=== PATIENT | female | born 1940 | race Caucasian/White ===

== ENCOUNTER 2017-10-17 15:27 | Inpatient (IN) | payer MEDICARE ==
[~2017-10-17] VITALS: Ht 165.1 cm; Wt 66.0 kg
[2017-10-17] MEDS ORDERED: IV NS 0.9% 1,000 ML BAG IV ONE ×2 (15:30→17:30)
--- NOTE | 2017-10-17 15:35 | NUR ---
[id number] FROM HOME: FEVER, ALOC, INCONTINENT. A/OX 2. BREATHING EVEN AND UNLABORED. NO SOB. VITALS STABLE. SKIN WARM TO TOUCH. IV INTACT ON LEFT HAND, 20 G.
[2017-10-17 15:55] LABS: BASOPHILS # (AUTO) 0.1 /CMM (0.0-0.2); BASOPHILS % (AUTO) 0.7 % (0.0-2.0); EOSINOPHILS % (AUTO) 0.3 % (0.0-6.0); HEMATOCRIT 40 % (33-45); HEMOGLOBIN 13.9 g/dL (11.5-14.8); LYMPHOCYTES # (AUTO) 1.3 /CMM (0.8-4.8); LYMPHOCYTES % (AUTO) 11.5 % (20.0-44.0); MEAN CORPUSCULAR HEMOGLOBIN 31 PG (26.0-33.0); MEAN CORPUSCULAR HGB CONC 35 g/dl (31.0-36.0); MEAN CORPUSCULAR VOLUME 90 fL (82-100); MONOCYTES % (AUTO) 8.8 % (2.0-12.0); NEUTROPHILS # (AUTO) 9.1 /CMM (1.8-8.9); NEUTROPHILS % (AUTO) 78.7 % (43.0-81.0); PLATELET COUNT (AUTO) 201 /CMM (150-450); RDW COEFFICIENT OF VARIATION 12.8 (11.5-15.0); RED BLOOD CELL COUNT(AUTO) 4.43 MIL/uL (4.0-5.2); WHITE BLOOD COUNT (AUTO) 11.5 K/uL (4.3-11.0)
--- NOTE | 2017-10-17 15:59 | NUR ---
URINE SAMPLE COLLECTED SENT TO LAB
--- NOTE | 2017-10-17 15:59 | NUR ---
PIECE GOODS PACKER AT BEDSIDE
--- NOTE | 2017-10-17 16:02 | NUR ---
INFLUENZA SWAB OBTAINED AND SENT TO LAB.
--- NOTE | 2017-10-17 16:03 | NUR ---
PATIENT TAKEN TO CT VIA STRETCHER.
[2017-10-17 16:04] LABS: CALCIUM, SERUM 8.9 mg/dL (8.5-10.1); CARBON DIOXIDE 29 mmol/L (21-32); CHLORIDE 100 mmol/L (98-107); CREATININE 0.8 mg/dL (0.6-1.3); GLUCOSE 161 mg/dL (74-106); POTASSIUM 4.6 mmol/L (3.5-5.1); SODIUM SERUM 136 mmol/L (136-145); UREA NITROGEN, BLOOD 12 mg/dL (7-18)
[2017-10-17 16:07] LABS: INR 1.01 (0.87-1.13); PROTHROMBIN TIME 10.5 SECS (9.5-12.7)
[2017-10-17 16:09] LABS: ALANINE AMINOTRANSFERASE 26 U/L (12-78); ALBUMIN 3.4 g/dL (3.4-5.0); ALKALINE PHOSPHATASE 107 U/L (46-116); ASPARTATE AMINOTRANSFERASE 30 U/L (15-37); BILIRUBIN,DIRECT 0.1 mg/dL (0.0-0.2); BILIRUBIN,TOTAL 0.8 mg/dL (0.2-1.0); TOTAL PROTEIN, SERUM 7.7 g/dL (6.4-8.2)
[2017-10-17 16:10] LABS: APPEARANCE,URINE Clear (CLEAR); BILIRUBIN,URINE Negative (NEGATIVE); BLOOD, URINE Negative Ery/uL (NEGATIVE); COLOR,URINE Yellow (YELLOW); KETONES,URINE Trace (NEGATIVE); LEUKOCYTE ESTERASE ,URINE Negative (NEGATIVE); NITRITE, URINE Negative (NEGATIVE); PH,URINE 6.5 (5.0-8.0); PROTEIN,URINE Negative (NEGATIVE); UGLUCOSE Negative (NEGATIVE); UROBILINOGEN,URINE 0.2 EU/dL (0.2)
[2017-10-17 16:12] LABS: TROPONIN I < 0.017 ng/mL (0.00-0.056)
[2017-10-17 16:32] LABS: BACTERIA,URINE None seen /HPF (None Seen); SQUAMOUS EPITHELIAL CELL,UR Few /HPF (None Seen); WBC,URINE 0-3 /HPF (0-3)
[2017-10-17] MEDS ORDERED: methylPREDNISolone SOD SUCC 125 MG/2ML VIAL IV ONE (17:00)
[2017-10-17] MEDS ORDERED: IPRATROPIUM NEB FS 0.5 MG/2.5 ML AMPUL.NEB NEB ONE (17:00)
[2017-10-17] MEDS ORDERED: ALBUTEROL FS 2.5 MG/3 ML VIAL.NEB NEB ONE (17:00)
[2017-10-17] MEDS ORDERED: CEFTRIAXONE 1GM BAG (ER ONLY) 1 GM/50 ML PIGGYBACK IV ONE (17:00)
[2017-10-17] MEDS ORDERED: CEFTRIAXONE 1GM BAG (ER ONLY) 50 ML IV ONE (17:08)
[2017-10-17] MEDS ORDERED: methylPREDNISolone SOD SUCC 125 MG/2ML VIAL ONE (17:08)
--- NOTE | 2017-10-17 17:08 | NUR ---
CALLED NURSING SUP. FOR TELE BED
--- NOTE | 2017-10-17 17:08 | NUR ---
DR.RUTHERFORD LASHELL STATISTICIAN THEORETICAL
[2017-10-17] MEDS ORDERED: IPRATROPIUM NEB FS 0.5 MG/2.5 ML AMPUL.NEB ONE (17:09)
[2017-10-17] MEDS ORDERED: ALBUTEROL FS 2.5 MG/3 ML VIAL.NEB ONE (17:09)
[2017-10-17] MEDS ORDERED: IV NS 0.9% 1,000 ML IV PRN (17:13)
[2017-10-17] MEDS ORDERED: BENA10TA2 PO (17:24)
[2017-10-17] MEDS ORDERED: HYDR12.5 PO (17:24)
[2017-10-17] MEDS ORDERED: ONDANSETRON HCL/PF 4 MG/2 ML VIAL IVP PRN (17:30)
[2017-10-17] MEDS ORDERED: Z GUARD REMEDY 2 OZ OINT TP PRN (17:30)
[2017-10-17] MEDS ORDERED: MAG HYDROX/AL HYDROX/SIMETH 30 ML UDC PO PRN (17:30)
[2017-10-17] MEDS ORDERED: ACETAMINOPHEN 650 MG/SUPP.RECT RC PRN (17:30)
[2017-10-17] MEDS ORDERED: MAGNESIUM HYDROXIDE 30 ML UDC PO PRN (17:30)
[2017-10-17] MEDS ORDERED: ACETAMINOPHEN 325 MG TABLET PO PRN (17:30)
[2017-10-17] MEDS ORDERED: ZOLPIDEM TARTRATE 5 MG TABLET PO PRN (17:30)
[2017-10-17] MEDS ORDERED: HYDROCODONE/APAP 5/325MG 1 EACH TABLET PO PRN (17:30)
--- NOTE | 2017-10-17 17:50 | NUR ---
REPORT GIVEN TO ELYSSA REYES FOR YANCY UPON ADMISSION.
[2017-10-17] MEDS ORDERED: ENOXAPARIN SODIUM 40 MG/0.4 ML DISP.SYRIN SQ SCH (18:00)
--- NOTE | 2017-10-17 18:17 | NUR ---
PATIENT TRANSPORTED TO [facility] VIA ACLS PROTOCOL. RNELYSSA TO PROVIDE YANCY.
[2017-10-17 18:31] VITALS: BP 124/56
--- NOTE | 2017-10-17 18:32 | NUR ---
TANK MAKER WOOD NOTE RECEIVED REPORT FROM ER. PT IS ADMIT FROM HOME FOR ACUTE RESPIRATORY FAILURE. HX OF CVA, HTN AND CAD. PT IS A/OX1 BUT LETHARGIC. PT IS ON TELE. ON COMPLETE BED REST. IV ACCESS LOCATED ON LEFT HAND 20G AND LEFT AC 20G BOTH SL. PT IS ON 2L O2 VIA NC. WILL ENDORSE TO R D INTERNSHIP FOR YANCY.
--- NOTE | 2017-10-17 19:30 | NUR ---
FAGOT HEATER HELPER OPENING NOTES RECEIVED PT ALERT, AWAKE,VERBALLY RESPONSIVE. ON O2 VIA N/C AT 2L/MIN.RESPIRATIONS EVEN, UNLABORED, NO RESPIRATORY DISTRESS NOTED. IV SITE LT HAND INTACT,PATENT. BODY ASSESSMENT DONE.SKIN INTACT. SINUS RHYTHM 82. CALL LIGHT WITHIN REACH. ATTENDED ALL NEEDS. KEPT CLEAN AND COMFORTABLE. WILL CONTINUE TO MONITOR ACCORDINGLY.
[2017-10-17 20:00] VITALS: BP 102/53
[2017-10-17] MEDS ORDERED: BENAZEPRIL HCL 10 MG TABLET PO SCH (22:00)
[2017-10-17 22:20] VITALS: BP 123/70
[2017-10-18] VITALS: BP 109/49
[2017-10-18 00:56] VITALS: BP 109/59
[2017-10-18 04:00] VITALS: BP_SYST 121; BP_SYST 124; BP_DIAS 58
--- NOTE | 2017-10-18 06:40 | NUR ---
OIL HEATER OPERATOR CLOSING NOTES PT IN BED AWAKE,ALERT,VERBALLY RESPONSIVE. ON O2 VIA N/C AT 2L/MIN,RESPIRATIONS EVEN,UNLABORED,NO SOB NOTED.DENIES ANY PAIN OR DISCOMFORT AT THIS TIME. IV SITE INTACT, PATENT.CALL LIGHT WITHIN REACH. ATTENDED ALL NEEDS. WILL CONTINUE TO MONITOR ACCORDINGLY.
--- NOTE | 2017-10-18 07:05 | NUR ---
FIBERGLASS BOAT FINISHER OPENING NOTE RECEIVED BEDSIDE SBAR REPORT ON THE PATIENT. PATIENT IS A/O X3, FORGETFUL OF SPECIFIC DATES, COOPERATIVE. EXTERNAL TELE MONITOR READING SR 64BPM. CHEST IS RISING EQUALLY, BILATERALLY. DENIES PAIN/DISCOMFORT AT THIS TIME.IV FLUIDS RUNNING PRESCRIBED. PATIENT IS IN BED, AWAKE AND RESPONSIVE. BED IS LOCKED IN LOWEST POSITION. SIDE RAILS UP X2, BED ALARM IS ON. CALL LIGHT IS WITHIN REACH. PATIENT EDUCATED TO CALL FOR ASSISTANCE USING THE CALL LIGHT VIA TEACH BACK METHOD. MAPIET VERBALIZED FULL UNDERSTANDING AND RETURNED DEMONSTRATION. ALL NEEDS ARE MET AT THIS TIME. WILL CONTINUE TO ASSESS/MONITOR THROUGHOUT THE SHIFT.
[2017-10-18] MEDS ORDERED: PANTOPRAZOLE 40 MG TABLET.DR PO SCH (07:30)
--- NOTE | 2017-10-18 07:30 | NUR ---
RURAL ROUTE CARRIER NOTE PATIENT REFUSED MEDICATION DUE AT 0730 AM. RISKS AND BENEFITS DISCUSSED. PATIENT REFUSED WHILE ERBALIZING UNDERSTANDING OF THE RISKS AND BENEFITS.
[2017-10-18 08:00] VITALS: BP 133/65
[2017-10-18 08:08] LABS: BASOPHILS % (AUTO) 0.2 % (0.0-2.0); HEMATOCRIT 37 % (33-45); HEMOGLOBIN 12.2 g/dL (11.5-14.8); LYMPHOCYTES # (AUTO) 1.4 /CMM (0.8-4.8); LYMPHOCYTES % (AUTO) 12.4 % (20.0-44.0); MEAN CORPUSCULAR HEMOGLOBIN 31 PG (26.0-33.0); MEAN CORPUSCULAR HGB CONC 33 g/dl (31.0-36.0); MEAN CORPUSCULAR VOLUME 93 fL (82-100); MONOCYTES # (AUTO) 0.5 /CMM (0.1-1.30); MONOCYTES % (AUTO) 4.4 % (2.0-12.0); NEUTROPHILS # (AUTO) 9.2 /CMM (1.8-8.9); PLATELET COUNT (AUTO) 179 /CMM (150-450); RED BLOOD CELL COUNT(AUTO) 3.95 MIL/uL (4.0-5.2)
[2017-10-18 08:38] LABS: CALCIUM, SERUM 8.3 mg/dL (8.5-10.1); CARBON DIOXIDE 26 mmol/L (21-32); CHLORIDE 108 mmol/L (98-107); CREATININE 0.7 mg/dL (0.6-1.3); GLUCOSE 142 mg/dL (74-106); MAGNESIUM 2.3 mg/dL (1.8-2.4); POTASSIUM 3.7 mmol/L (3.5-5.1); SODIUM SERUM 142 mmol/L (136-145); UREA NITROGEN, BLOOD 12 mg/dL (7-18)
[2017-10-18] MEDS ORDERED: HYDROCHLOROTHIAZIDE 25 MG TABLET PO SCH (09:00)
[2017-10-18] MEDS ORDERED: DOCUSATE SODIUM 100 MG CAPSULE PO SCH (09:00)
--- NOTE | 2017-10-18 09:15 | NUR ---
ACCOUNTING PRACTICE MANAGER NOTE PATIENT REFUSED COLACE. RISKS AND BENEFITS DISCUSSED. PATIENT VERBALIZED UNDERSTANDING OF RISKS AND BENEFITS AND REFUSED THE MEDICATION.
[2017-10-18 09:22] VITALS: BP 133/65
--- NOTE | 2017-10-18 13:42 | NUR ---
MS RN NOTE DISCHARGE ORDER RECEIVED. DISCHARGE EDUCATION PROVIDED. ALL QUESTIONS ANSWERED. VACCINES OFFERED AND REFUSED. ALL BELONGINGS ARE ACCOUNTED FOR. IV CATHETER REMOVED WITH THE TIP INTACT. OCCLUSIVE DRESSING APPLIED. PATIENT IS LEAVING THE UNIT VIA WHEELCHAIR ACCOMPANIED BY COMPUTER INFORMATION SYSTEMS PROFESSOR AND THE . PATIENT IS GOING HOME WITH THE VIA PRIVATE CAR.
== END 2017-10-18 13:40 | disposition home or self-care (01) | DRG 865 ==
LOC: ER 15:29 → TELE 17:51 → MED 10-18 10:02
PROVIDERS: ADMIT Internal Medicine; ATTEND Internal Medicine
DX: B34.9 Viral infection, unspecified (principal); J96.01 Acute respiratory failure with hypoxia; G93.41 Metabolic encephalopathy; E78.5 Hyperlipidemia, unspecified; I10 Essential (primary) hypertension; R26.9 Unspecified abnormalities of gait and mobility; Z86.73 Personal history of transient ischemic attack (TIA), and cerebral infarction without residual deficits; Z88.4 Allergy status to anesthetic agent; Z88.0 Allergy status to penicillin; E86.0 Dehydration
CPT/HCPCS: 36415; 70450-TC; 71010-TC; 80048-TC; 80076-TC; 81000-TC; 83605-TC; 83735-TC; 84100-TC; 84484-TC; 85025-TC; 85730-TC; 87040-TC; 87081-TC; 87086-TC; 87400; A4606; J0696; J1650; J2930; J7030; Z7610

== ENCOUNTER 2018-06-14 15:07 | Inpatient (IN) | payer MEDICARE ==
[~2018-06-14] VITALS: Ht 149.9 cm; Wt 67.1 kg
[~2018-06-14 15:07] MED LIST: BENA10TA9 PO; HYDR12.5 PO
--- NOTE | 2018-06-14 15:30 | NUR ---
PT WALKED INTO EMERGENCY ROOM ACCOMAPANIED BY FAMILY FOR UPPER EXTREMITY BILATERAL ARM PAIN S/P FALL
[2018-06-14] MEDS ORDERED: KETOROLAC TROMETHAMINE INJ 30 MG/ML VIAL IV ONE (16:00)
[2018-06-14] MEDS ORDERED: IV NS 0.9% 1,000 ML BAG IV ONE (16:00)
[2018-06-14 16:08] LABS: BASOPHILS # (AUTO) 0.1 /CMM (0.0-0.2); BASOPHILS % (AUTO) 0.5 % (0.0-2.0); EOSINOPHILS % (AUTO) 1.1 % (0.0-6.0); HEMATOCRIT 39 % (33-45); LYMPHOCYTES # (AUTO) 1.8 /CMM (0.8-4.8); LYMPHOCYTES % (AUTO) 17.1 % (20.0-44.0); MEAN CORPUSCULAR HEMOGLOBIN 30 PG (26.0-33.0); MEAN CORPUSCULAR HGB CONC 33 g/dl (31.0-36.0); MEAN CORPUSCULAR VOLUME 91 fL (82-100); MONOCYTES # (AUTO) 0.7 /CMM (0.1-1.30); MONOCYTES % (AUTO) 6.8 % (2.0-12.0); NEUTROPHILS # (AUTO) 7.7 /CMM (1.8-8.9); NEUTROPHILS % (AUTO) 74.5 % (43.0-81.0); PLATELET COUNT (AUTO) 219 /CMM (150-450); RDW COEFFICIENT OF VARIATION 12.4 (11.5-15.0); RED BLOOD CELL COUNT(AUTO) 4.31 MIL/uL (4.0-5.2); WHITE BLOOD COUNT (AUTO) 10.4 K/uL (4.3-11.0)
[2018-06-14] MEDS ORDERED: KETOROLAC TROMETHAMINE 15 MG/ML VIAL ONE (16:10)
[2018-06-14 16:19] LABS: INR 0.99 (0.85-1.15)
[2018-06-14 16:26] LABS: ALANINE AMINOTRANSFERASE 35 U/L (12-78); ALBUMIN 3.5 g/dL (3.4-5.0); ALKALINE PHOSPHATASE 93 U/L (46-116); ASPARTATE AMINOTRANSFERASE 27 U/L (15-37); BILIRUBIN,DIRECT 0.1 mg/dL (0.0-0.2); BILIRUBIN,TOTAL 0.6 mg/dL (0.2-1.0); CALCIUM, SERUM 9.3 mg/dL (8.5-10.1); CARBON DIOXIDE 31 mmol/L (21-32); CHLORIDE 101 mmol/L (98-107); CREATININE 0.9 mg/dL (0.6-1.3); GLUCOSE 133 mg/dL (74-106); LIPASE 110 U/L (73-393); SODIUM SERUM 135 mmol/L (136-145); TOTAL PROTEIN, SERUM 7.5 g/dL (6.4-8.2); UREA NITROGEN, BLOOD 18 mg/dL (7-18)
[2018-06-14 16:28] LABS: TROPONIN I < 0.017 ng/mL (0.00-0.056)
[2018-06-14] MEDS ORDERED: oxyCODONE/APAP (5/325 MG) 1 UDTAB TABLET ONE (16:59)
[2018-06-14] MEDS ORDERED: oxyCODONE/APAP (5/325 MG) 1 UDTAB TABLET PO ONE ×2 (17:00→17:30)
[2018-06-14] MEDS ORDERED: FLUO-119 PO (18:21)
[2018-06-14] MEDS ORDERED: BENA40TA8 PO (18:21)
[2018-06-14] MEDS ORDERED: SIMV20TA6 PO (18:21)
--- NOTE | 2018-06-14 18:28 | NUR ---
PAGED [facility] FOR PANEL - RECORDING STUDIO SETUP WORKER CORPORATE QUALITY MANAGER JUS SANTORO
--- NOTE | 2018-06-14 18:53 | NUR ---
CALLED NURSE SUP FOR MED/SURG BED
[2018-06-14] MEDS ORDERED: MORPHINE SULFATE INJ 2 MG/ML DISP.SYRIN IV PRN (19:00)
[2018-06-14] MEDS ORDERED: HYDROCODONE/APAP 10/325MG 1 EA TABLET PO PRN (19:00)
[2018-06-14] MEDS ORDERED: HYDROCODONE/APAP 5/325MG 1 EACH TABLET PO PRN (19:00)
[2018-06-14] MEDS ORDERED: MAG HYDROX/AL HYDROX/SIMETH 30 ML UDC PO PRN (19:00)
[2018-06-14] MEDS ORDERED: Z GUARD REMEDY 2 OZ OINT TP PRN (19:00)
[2018-06-14] MEDS ORDERED: ACETAMINOPHEN 325 MG TABLET PO PRN (19:00)
[2018-06-14] MEDS ORDERED: ONDANSETRON HCL/PF 4 MG/2 ML VIAL IVP PRN (19:00)
[2018-06-14] MEDS ORDERED: MAGNESIUM HYDROXIDE 30 ML UDC PO PRN (19:00)
[2018-06-14 19:35] VITALS: BP 153/77
--- NOTE | 2018-06-14 20:58 | NUR ---
RN NOTE RECEIVED PATIENT FROM ER VIA [employer], PATIENT IS ALERT/ORIENTED X 4, ABLE TO COMMUNICATE NEEDS, JUS KWONG IS BY BEDSIDE, FAMILY AND SON IS BY BEDSIDE, NO DISTRESS NOTED, DX HUMERUS FX, ON ROOM AIR 98%, RIGHT HAND 20 GAUGE, NO S/S OF INFECTION/INFILTRATION NOTED, INSTRUCTED PATIENT TO USE CALL LIGHT, BED ALARM IS ACTIVATED AND CHECKED PRIOR, BED IN THE LOWEST POSITION, CALL LIGHT WITH REACH, SIDE RAILS UP X 2, WILL CONTINUE TO MONITOR PATIENT Addendum: 06/15/18 at 0028 by TAYLOR PORRAS RN ALL SKIN PICTURES TAKEN AND PLACED IN THE CHART
[2018-06-14] MEDS: SIMVASTATIN 20 MG TABLET PO SCH (21:17)
[2018-06-14] MEDS: ENOXAPARIN SODIUM 40 MG/0.4 ML DISP.SYRIN SQ SCH (21:18)
[2018-06-14] MEDS: IV NS 0.9% 1,000 ML IV PRN (22:28)
[2018-06-15 04:00] VITALS: BP 120/55
[2018-06-15 06:29] LABS: BASOPHILS % (AUTO) 0.4 % (0.0-2.0); EOSINOPHILS % (AUTO) 0.8 % (0.0-6.0); HEMATOCRIT 35 % (33-45); HEMOGLOBIN 11.7 g/dL (11.5-14.8); LYMPHOCYTES # (AUTO) 2.5 /CMM (0.8-4.8); LYMPHOCYTES % (AUTO) 23.5 % (20.0-44.0); MEAN CORPUSCULAR HEMOGLOBIN 32 PG (26.0-33.0); MEAN CORPUSCULAR HGB CONC 34 g/dl (31.0-36.0); MEAN CORPUSCULAR VOLUME 94 fL (82-100); MONOCYTES # (AUTO) 1.3 /CMM (0.1-1.30); MONOCYTES % (AUTO) 12.2 % (2.0-12.0); NEUTROPHILS # (AUTO) 6.7 /CMM (1.8-8.9); NEUTROPHILS % (AUTO) 63.1 % (43.0-81.0); PLATELET COUNT (AUTO) 203 /CMM (150-450); RDW COEFFICIENT OF VARIATION 13.3 (11.5-15.0); WHITE BLOOD COUNT (AUTO) 10.6 K/uL (4.3-11.0)
[2018-06-15 06:40] LABS: CALCIUM, SERUM 8.5 mg/dL (8.5-10.1); CARBON DIOXIDE 29 mmol/L (21-32); CHLORIDE 102 mmol/L (98-107); CREATININE 0.8 mg/dL (0.6-1.3); GLUCOSE 95 mg/dL (74-106); POTASSIUM 3.1 mmol/L (3.5-5.1); SODIUM SERUM 138 mmol/L (136-145); UREA NITROGEN, BLOOD 18 mg/dL (7-18)
[2018-06-15 06:45] LABS: CHOLESTEROL 144 mg/dL (<200); HDL CHOLESTEROL 52 mg/dL (40-60); LDL 75 mg/dL (0-99); TRIGLYCERIDES 106 mg/dL (30-150)
--- NOTE | 2018-06-15 07:23 | NUR ---
RN NOTE NO ACUTE CHANGES ON MY SHIFT, PATIENT IS ALERT/ORIENTED X 4, PAIN IN LEFT SHOULDER IS WELL CONTROLLED WITH PAIN MEDICATION, ON IV FLUIDS, TOLERATES WELL, BED IN THE LOWEST POSITION, CALL LIGHT WITHIN REACH, BED ALARM ACTIVATED, WILL ENDORSE TO AM SHIFT TO CONTINUE CARE
[2018-06-15] MEDS: PANTOPRAZOLE 40 MG TABLET.DR PO SCH (07:30)
--- NOTE | 2018-06-15 07:30 | NUR ---
PIG CASTER OPENING NOTE RECEIVED PATIENT IN BED, AWAKE AND A&O X4, ABLE TO MAKE NEEDS KNOWN. NO COMPLAINT OF PAIN OR SHORTNESS OF BREATH. RIGHT HAND JANET SITE CLEAN AND INTACT, INFUSING NORMAL SALINE AT 75ML/HR. DISCUSSED PLAN OF CARE TODAY, PATIENT AWARE AND AGREEABLE. BED IN LOW POSITION AND LOCKED, CALL LIGHT WITHIN REACH, ALL NEEDS MET AT THIS TIME. WILL CONTINUE TO MONITOR.
[2018-06-15 08:00] VITALS: BP 112/56
[2018-06-15] MEDS: Fluoxetine 10 mg capsule PO SCH (08:31)
[2018-06-15] MEDS: BENAZEPRIL HCL 20 MG TABLET PO SCH (08:31)
[2018-06-15] MEDS: ASPIRIN 81 MG TAB.CHEW PO SCH (08:31)
[2018-06-15] MEDS: HYDROCHLOROTHIAZIDE 25 MG TABLET PO SCH (08:31)
[2018-06-15] MEDS ORDERED: Medication Not On Formulary EA (Benazepril Hcl 40 MG) PO SCH (09:00)
[2018-06-15] MEDS ORDERED: Medication Not On Formulary EA (Hydrochlorothiazide 12.5 MG) PO SCH (09:00)
[2018-06-15] MEDS ORDERED: HYDROCHLOROTHIAZIDE 12.5 MG CAPSULE PO SCH (09:00)
[2018-06-15] MEDS ORDERED: POTASSIUM CHLORIDE 20 MEQ TAB.PRT.SR PO ONE (09:00)
--- NOTE | 2018-06-15 09:01 | NUR ---
WOUND CARE CONSULT: PT PRESENTS WITH DRY ABRASION TO LEFT ELBOW, PRESENT ON ADMISSION. NO DRAINAGE, REDNESS OR TENDERNESS NOTED. LEFT ARM SLING IN PLACE. PT ABLE TO ASSIST WITH TURNING AND REPOSITIONING IN BED. SKIN PROTECTION RECOMMENDATIONS DISCUSSED WITH NURSING STAFF. PT ON DANIELLE ISOFLEX LOW AIRLOSS BED. CURRENT SLADE SCORE IS 19. WILL SEE PRN. GUERRIER IN AGREEMENT WITH PLAN OF CARE. Addendum: 06/15/18 at 0903 by FABIAN BEAR WNDNU Amended: Links added.
[2018-06-15] MEDS: oxyCODONE/APAP (5/325 MG) 1 UDTAB TABLET PO PRN (13:49)
[2018-06-15 16:00] VITALS: BP 115/42
[2018-06-15] MEDS: IV NS 0.9% 1,000 ML IV PRN (18:36)
--- NOTE | 2018-06-15 18:53 | NUR ---
PROTEIN SCIENTIST CLOSING NOTE PATIENT RESTING IN BED, A&OX4, ABLE TO MAKE NEEDS KNOWN. NO COMPLAINT OF PAIN OR SIGNS OR SYMPTOMS OF DISTRESS. IV SITE ON RIGHT HAND CLEAN AND INTACT, NORMAL SALINE INFUSING AT 75ML/HOUR. SEQUENTIAL COMPRESSION DEVICES ON BILATERAL LOWER EXTREMITIES. CALL LIGHT WITHIN REACH, BED LOCKED AND IN LOW POSITION. ALL NEEDS MET AT THIS TIME, WILL ENDORSE TO ONCOMING NURSE.
[2018-06-15] MEDS: ENOXAPARIN SODIUM 40 MG/0.4 ML DISP.SYRIN SQ SCH (20:22)
[2018-06-15] MEDS: SIMVASTATIN 20 MG TABLET PO SCH (21:25)
[2018-06-16 04:00] VITALS: BP 154/67
--- NOTE | 2018-06-16 06:47 | NUR ---
RN NOTE' NO ACUTE CHANGES, NO DISTRESS NOTED, PATIENT RESTED WELL AT NIGHT, ALL SAFETY MEASURES TAKEN, WILL ENDORSE TO AM SHIFT TO CONTINUE CARE
[2018-06-16 07:09] LABS: CALCIUM, SERUM 8.4 mg/dL (8.5-10.1); CARBON DIOXIDE 29 mmol/L (21-32); CHLORIDE 105 mmol/L (98-107); CREATININE 0.8 mg/dL (0.6-1.3); GLUCOSE 120 mg/dL (74-106); POTASSIUM 3.6 mmol/L (3.5-5.1); SODIUM SERUM 141 mmol/L (136-145); UREA NITROGEN, BLOOD 13 mg/dL (7-18)
[2018-06-16 07:18] LABS: BASOPHILS % (AUTO) 0.3 % (0.0-2.0); EOSINOPHILS % (AUTO) 2.1 % (0.0-6.0); HEMATOCRIT 33 % (33-45); HEMOGLOBIN 10.9 g/dL (11.5-14.8); LYMPHOCYTES # (AUTO) 2.5 /CMM (0.8-4.8); LYMPHOCYTES % (AUTO) 23.1 % (20.0-44.0); MEAN CORPUSCULAR HEMOGLOBIN 31 PG (26.0-33.0); MEAN CORPUSCULAR HGB CONC 33 g/dl (31.0-36.0); MEAN CORPUSCULAR VOLUME 95 fL (82-100); MONOCYTES # (AUTO) 1.1 /CMM (0.1-1.30); MONOCYTES % (AUTO) 10.6 % (2.0-12.0); NEUTROPHILS # (AUTO) 6.8 /CMM (1.8-8.9); NEUTROPHILS % (AUTO) 63.9 % (43.0-81.0); PLATELET COUNT (AUTO) 186 /CMM (150-450); RDW COEFFICIENT OF VARIATION 13.2 (11.5-15.0); RED BLOOD CELL COUNT(AUTO) 3.48 MIL/uL (4.0-5.2); WHITE BLOOD COUNT (AUTO) 10.7 K/uL (4.3-11.0)
[2018-06-16] MEDS: PANTOPRAZOLE 40 MG TABLET.DR PO SCH (07:30)
[2018-06-16 08:00] VITALS: BP 141/64
[2018-06-16] MEDS: ASPIRIN 81 MG TAB.CHEW PO SCH (08:43)
[2018-06-16] MEDS: Fluoxetine 10 mg capsule PO SCH (08:44)
[2018-06-16] MEDS: BENAZEPRIL HCL 20 MG TABLET PO SCH (08:44)
[2018-06-16] MEDS: HYDROCHLOROTHIAZIDE 25 MG TABLET PO SCH (08:44)
[2018-06-16] MEDS: IV NS 0.9% 1,000 ML IV PRN (12:43)
[2018-06-16] MEDS: oxyCODONE/APAP (5/325 MG) 1 UDTAB TABLET PO PRN (14:49)
[2018-06-16 16:00] VITALS: BP 133/67
--- NOTE | 2018-06-16 19:30 | NUR ---
RN OPENING NOTES: RECEIVED PATIENT ON BED AWAKE ALERT AND ORIENTED. NOTED WITH SLING ON LEFT ARM. ON ROOM AIR, NOT IN APPARENT DISTRESS. NO COMPLAINTS OF PAIN AT THIS TIME BUT SAYS IT IS PAINFUL WHEN HER ARMS MOVES. KEPT ARM STABILIZED AT ALL TIMES. SAFETY MEASURES ENSURED. IV ACCESS INTACT. CALL LIGHT WITHIN REACH. ASSISTED NEEDED. CONTINUOUSLY MONITORED.
[2018-06-16 20:00] VITALS: BP 126/54
[2018-06-16] MEDS: ENOXAPARIN SODIUM 40 MG/0.4 ML DISP.SYRIN SQ SCH (22:01)
[2018-06-16] MEDS: SIMVASTATIN 20 MG TABLET PO SCH (22:01)
[2018-06-17] MEDS: IV NS 0.9% 1,000 ML IV PRN (03:04)
[2018-06-17 04:00] VITALS: BP 150/66
--- NOTE | 2018-06-17 06:53 | NUR ---
RN CLOSING NOTES: PATIENT REMAINED NOT IN APPARENT DISTRESS WITHOUT DECLINE IN MENTAL STATUS. NO ACUTE CHANGES OVERNIGHT. ASSISTED NEEDED. SKIN CARE RENDERED. LEFT ARM MAINTAINED ON SLING. SAFETY MEASURES ENSURED AT ALL TIMES. CONTINUOUSLY MONITORED. TO ENDORSE TO AM SHIFT RN.
[2018-06-17] MEDS: PANTOPRAZOLE 40 MG TABLET.DR PO SCH (07:30)
--- NOTE | 2018-06-17 07:30 | NUR ---
MS RN NOTES: RECEIVED PT ON BED ASLEEP, BUT EASILY AROUSABLE. VERBALLY RESPONSIVE. NO APPARENT DISTRESS NOTED. DENIES PAIN AND DISCOMFORT AT THIS TIME. ON ROOM AIR, SATURATING WELL. NO SOB NOTED. IV ON RIGHT HAND #20 INTACT AND PATENT, INFUSING WELL. KEPT CLEAN, DRY AND COMFORTABLE. SIDE RAILS UP X2. BED ALARM ON. BED LOCKED AND IN LOWEST POSITION. CALL LIGHT WITHIN REACH. WILL CONTINUE TO MONITOR PT.
[2018-06-17 08:00] VITALS: BP 164/62
[2018-06-17] MEDS: BENAZEPRIL HCL 20 MG TABLET PO SCH (08:22)
[2018-06-17] MEDS: Fluoxetine 10 mg capsule PO SCH (08:22)
[2018-06-17] MEDS: HYDROCHLOROTHIAZIDE 25 MG TABLET PO SCH (08:23)
[2018-06-17] MEDS: ASPIRIN 81 MG TAB.CHEW PO SCH (08:23)
[2018-06-17] MEDS ORDERED: hydrALAZINE HCL IV 20 MG VIAL IV STA (14:16)
[2018-06-17] MEDS ORDERED: hydrALAZINE HCL 10 MG TABLET PO ONE (14:30)
[2018-06-17 14:40] VITALS: BP 182/72
[2018-06-17] MEDS: oxyCODONE/APAP (5/325 MG) 1 UDTAB TABLET PO PRN (14:49)
--- NOTE | 2018-06-17 14:56 | NUR ---
MS RN NOTES: PATIENT WAS DISCHARGED TO [facility]. REPORT GIVEN TO AMY JACK. PT IN STABLE CONDITION. PT BP WENT UP TO 168/72, DR. ESPARZA NOTIFIED, HYDRALAZINE 10MG PO X1 ORDERED. ORDER CARRIED OUT AND DONE. IV ON RIGHT HAND REMOVED. BELONGINGS LIST DONE. PICTURES TAKEN AND PLACED ON CHART. DISCHARGE INSTRUCTIONS GIVE. BP RECHECKED, 150/72. APURVA MADE AWARE REGARDING PATIENT'S DISCHARGE.
== END 2018-06-17 15:00 | DRG 563 ==
LOC: ER 15:11 → MEDSG1 19:20
PROVIDERS: ADMIT Registered Nurse; ATTEND Registered Nurse
DX: S42.212A Unspecified displaced fracture of surgical neck of left humerus, initial encounter for closed fracture (principal); W18.30XA Fall on same level, unspecified, initial encounter; Y92.000 Kitchen of unspecified non-institutional (private) residence as the place of occurrence of the external cause; E86.0 Dehydration; I10 Essential (primary) hypertension; Z88.0 Allergy status to penicillin; Z86.73 Personal history of transient ischemic attack (TIA), and cerebral infarction without residual deficits; Z88.8 Allergy status to other drugs, medicaments and biological substances; Z79.899 Other long term (current) drug therapy; M85.80 Other specified disorders of bone density and structure, unspecified site; R42 Dizziness and giddiness; M81.0 Age-related osteoporosis without current pathological fracture; E78.5 Hyperlipidemia, unspecified; E87.6 Hypokalemia
CPT/HCPCS: 36415; 71045-TC; 73030-TC; 80048-TC; 80061-TC; 80076-TC; 83690-TC; 83735-TC; 84100-TC; 84443-TC; 84484-TC; 85025-TC; 85730-TC; 87081-TC; 97110-TC; 97116-TC; 97530-TC; A4565; A4606; J1650; J1885; J7030; Z7610

== ENCOUNTER 2019-02-03 18:44 | Inpatient (IN) | payer MEDICARE ==
[~2019-02-03] VITALS: Ht 152.4 cm; Wt 65.3 kg
[~2019-02-03 18:44] MED LIST changes: -BENA10TA9 PO; +BENA40TA8 PO; +FLUO-119 PO; +SIMV20TA6 PO
--- NOTE | 2019-02-03 19:40 | NUR ---
PT BIBRA 878, C/O GEN WEAKNESS X2 DAYS. -NEURO DEFICIT. DENIES CP, SOB, SALAZAR, DIZZINESS, N/V/D AT THIS TIME. PT AOX4. NAD NOTED. RESP EVEN AND UNLABORED. PT ON MONITOR IN BED 9 WITH FAMILY AT BEDSIDE. WILL CONTINUE TO MONITOR.
--- NOTE | 2019-02-03 19:48 | NUR ---
TECH AT BEDSIDE FOR EKG
--- NOTE | 2019-02-03 19:48 | NUR ---
Meenu beckwith in EDM - 02/03/19 at 2009 by JUDIT RADIOLOGY AT BEDSIDE FOR XRAY
[2019-02-03] MEDS ORDERED: IV NS 0.9% 1,000 ML BAG IV ONE (20:00)
--- NOTE | 2019-02-03 20:01 | NUR ---
PHLEB AT BEDSIDE FOR LAB DRAW
--- NOTE | 2019-02-03 20:08 | NUR ---
PT TAKEN TO RADIOLOGY VIA ELSY
[2019-02-03 20:11] LABS: BASOPHILS % (AUTO) 0.6 % (0.0-2.0); EOSINOPHILS % (AUTO) 0.8 % (0.0-6.0); HEMATOCRIT 39 % (33-45); HEMOGLOBIN 13.2 g/dL (11.5-14.8); LYMPHOCYTES # (AUTO) 1.2 /CMM (0.8-4.8); LYMPHOCYTES % (AUTO) 14.5 % (20.0-44.0); MEAN CORPUSCULAR HGB CONC 34 g/dl (31.0-36.0); MEAN CORPUSCULAR VOLUME 93 fL (82-100); MONOCYTES # (AUTO) 1.1 /CMM (0.1-1.30); NEUTROPHILS # (AUTO) 5.7 /CMM (1.8-8.9); NEUTROPHILS % (AUTO) 70.1 % (43.0-81.0); PLATELET COUNT (AUTO) 195 /CMM (150-450); RED BLOOD CELL COUNT(AUTO) 4.19 MIL/uL (4.0-5.2); WHITE BLOOD COUNT (AUTO) 8.1 K/uL (4.3-11.0)
[2019-02-03 20:22] LABS: ALANINE AMINOTRANSFERASE 26 U/L (12-78); ALBUMIN 3.7 g/dL (3.4-5.0); ALKALINE PHOSPHATASE 91 U/L (46-116); ASPARTATE AMINOTRANSFERASE 23 U/L (15-37); BILIRUBIN,DIRECT 0.1 mg/dL (0.0-0.2); BILIRUBIN,TOTAL 0.6 mg/dL (0.2-1.0); CALCIUM, SERUM 9.3 mg/dL (8.5-10.1); CARBON DIOXIDE 29 mmol/L (21-32); CHLORIDE 100 mmol/L (98-107); CREATININE 1.1 mg/dL (0.6-1.3); GLUCOSE 112 mg/dL (74-106); POTASSIUM 3.5 mmol/L (3.5-5.1); SODIUM SERUM 135 mmol/L (136-145); TOTAL PROTEIN, SERUM 7.5 g/dL (6.4-8.2); UREA NITROGEN, BLOOD 20 mg/dL (7-18)
[2019-02-03 21:13] LABS: APPEARANCE,URINE Clear (CLEAR); BILIRUBIN,URINE Negative (NEGATIVE); BLOOD, URINE Negative Ery/uL (NEGATIVE); COLOR,URINE Yellow (YELLOW); KETONES,URINE Negative (NEGATIVE); LEUKOCYTE ESTERASE ,URINE Negative (NEGATIVE); NITRITE, URINE Negative (NEGATIVE); PH,URINE 5.5 (5.0-8.0); PROTEIN,URINE Negative (NEGATIVE); UGLUCOSE Negative (NEGATIVE); UROBILINOGEN,URINE 0.2 EU/dL (0.2)
--- NOTE | 2019-02-03 22:04 | NUR ---
CALLED NURSING SUP REQUESTED MED SURG BED FOR THIS PATIENT
--- NOTE | 2019-02-03 22:11 | NUR ---
ADMIT TO 113-1 MED SURG DX FAILURE TO THRIVE, GEN WEAKNESS ACCEPTING YOLANDA NAIR
--- NOTE | 2019-02-03 22:22 | NUR ---
RAPID INFLUENZA SWAB SENT TO LAB
--- NOTE | 2019-02-03 22:40 | NUR ---
REPORT GIVEN TO AMY ARMSTRONG FOR YANCY
[2019-02-03] MEDS ORDERED: ACETAMINOPHEN 325 MG TABLET PO PRN (23:00)
[2019-02-03] MEDS ORDERED: ONDANSETRON HCL/PF 4 MG/2 ML VIAL IVP PRN (23:00)
[2019-02-03] MEDS ORDERED: Z GUARD REMEDY 2 OZ OINT TP PRN (23:00)
[2019-02-03] MEDS ORDERED: HYDROCODONE/APAP 5/325MG 1 EACH TABLET PO PRN (23:00)
[2019-02-03] MEDS ORDERED: ZOLPIDEM TARTRATE 5 MG TABLET PO PRN (23:00)
[2019-02-03] MEDS ORDERED: MAGNESIUM HYDROXIDE 30 ML UDC PO PRN (23:00)
--- NOTE | 2019-02-03 23:15 | NUR ---
AIR HOIST OPERATORCRAWLER TRACTOR OPERATOR NOTE: PT ADMITTED FROM ER VIA [facility] WITH ADMITTING DIAGNOSIS OF GENERALIZED WEAKNESS. SON AT BEDSIDE. PT IS ALERT AND ORIENTED X3, ABLE TO MAKE NEEDS KNOWN. NO APPARENT DISTRESS NOTED. DENIES PAIN AND DISCOMFORT AT THIS TIME. ON ROOM AIR, SATURATING WELL. NO SOB NOTED. PT HAS AN IV ON HER RIGHT ANTECUBITAL #20 INTACT AND PATENT, FLUSHING WELL. NO SIGNS/SYMPTOMS OF INFILTRATION NOTED. PERTINENT ASSESSMENTS DONE. SKIN ISSUE NOTED, PICTURE TAKEN AND PLACED ON CHART. KEPT CLEAN, DRY AND COMFORTABLE. SAFETY AND FALL PRECAUTIONS OBSERVED AND MAINTAINED. WILL CONTINUE TO MONITOR PT. Addendum: 02/04/19 at 0646 by LASHELL ANTONIO RN PT IS TERESA
[2019-02-03 23:36] VITALS: BP 152/81
[2019-02-04] MEDS: IV NS 0.9% 1,000 ML IV PRN ×2 (00:12→18:26)
[2019-02-04 04:00] VITALS: BP 143/67
--- NOTE | 2019-02-04 06:46 | NUR ---
MS RN NOTE: NO CHANGES NOTED THROUGHOUT THE SHIFT. NO APPARENT DISTRESS NOTED. NO COMPLAINTS OF PAIN OR DISCOMFORT AT THIS TIME. NO SOB NOTED. IV ON RIGHT AC #20 INTACT AND PATENT, IVF INFUSING WELL. KEPT CLEAN, DRY AND COMFORTABLE. SAFETY AND FALL PRECAUTIONS OBSERVED AND MAINTAINED. WILL ENDORSE TO DAY SHIFT RN FOR CONTINUITY OF CARE.
[2019-02-04] MEDS: AZITHROMYCIN 500 MG in IV D5W 250 ML IV SCH (07:25)
[2019-02-04 07:26] LABS: BASOPHILS % (AUTO) 0.7 % (0.0-2.0); EOSINOPHILS % (AUTO) 0.6 % (0.0-6.0); HEMATOCRIT 34 % (33-45); HEMOGLOBIN 11.9 g/dL (11.5-14.8); LYMPHOCYTES # (AUTO) 1.8 /CMM (0.8-4.8); LYMPHOCYTES % (AUTO) 28.3 % (20.0-44.0); MEAN CORPUSCULAR HGB CONC 35 g/dl (31.0-36.0); MEAN CORPUSCULAR VOLUME 92 fL (82-100); MONOCYTES # (AUTO) 1.2 /CMM (0.1-1.30); MONOCYTES % (AUTO) 18.3 % (2.0-12.0); NEUTROPHILS # (AUTO) 3.4 /CMM (1.8-8.9); NEUTROPHILS % (AUTO) 52.1 % (43.0-81.0); PLATELET COUNT (AUTO) 166 /CMM (150-450); RED BLOOD CELL COUNT(AUTO) 3.75 MIL/uL (4.0-5.2); WHITE BLOOD COUNT (AUTO) 6.5 K/uL (4.3-11.0)
[2019-02-04 07:54] LABS: CALCIUM, SERUM 8.3 mg/dL (8.5-10.1); CARBON DIOXIDE 28 mmol/L (21-32); CHLORIDE 104 mmol/L (98-107); CREATININE 0.8 mg/dL (0.6-1.3); GLUCOSE 94 mg/dL (74-106); MAGNESIUM 1.9 mg/dL (1.8-2.4); POTASSIUM 3.3 mmol/L (3.5-5.1); SODIUM SERUM 140 mmol/L (136-145); UREA NITROGEN, BLOOD 14 mg/dL (7-18)
[2019-02-04 07:56] LABS: CHOLESTEROL 120 mg/dL (<200); HDL CHOLESTEROL 44 mg/dL (40-60); LDL 69 mg/dL (0-99); TRIGLYCERIDES 70 mg/dL (30-150)
[2019-02-04 08:00] VITALS: BP 131/61
--- NOTE | 2019-02-04 08:14 | NUR ---
RN OPENING NOTES PT RESTING IN BED. NO COMPLAINTS OF PAIN, SOB OR DISTRESS AT THIS TIME. PT HAS RIGHT AC #20 RUNNING NS @75ML/HR, PT TOLERATING WELL. SAFETY PRECAUTIONS IN PLACE, BED IN LOWEST LOCKED POSITION, X2 SIDE RAILS UP AND CALL LIGHT WITHIN REACH WILL CONTINUE TO MONITOR.
[2019-02-04] MEDS: Fluoxetine 10 mg capsule PO SCH (09:10)
[2019-02-04] MEDS: ASPIRIN 81 MG TAB.CHEW PO SCH (09:10)
[2019-02-04] MEDS: BENAZEPRIL HCL 20 MG TABLET PO SCH (09:11)
[2019-02-04] MEDS ORDERED: POTASSIUM CHLORIDE 20 MEQ TAB.PRT.SR PO SCH (10:00)
--- NOTE | 2019-02-04 16:38 | NUR ---
Patient lives locally with family in an apartment. She is ambulatory and independent with adl's her baseline. She own a cane and shower chair. She has good family support.Current dc plan is to return home, family will provide ride. Addendum: 02/04/19 at 1638 by YANNICK WANG RN Amended: Links added.
--- NOTE | 2019-02-04 19:01 | NUR ---
RN CLOSING NOTES PT RESTING IN BED. NO COMPLAINTS OF PAIN, SOB OR DISTRESS DURING SHIFT. PT HAS RIGHT AC #20 RUNNING NS @75ML/HR, PT TOLERATING WELL. SAFETY PRECAUTIONS IN PLACE, BED IN LOWEST LOCKED POSITION, X2 SIDE RAILS UP AND CALL LIGHT WITHIN REACH. WILL ENDORSE TO REAL ESTATE SITE ANALYST NURSE FOR CONTINUITY OF CARE.
--- NOTE | 2019-02-04 19:30 | NUR ---
MS RN NOTE PATIENT REPORT GIVEN BEDSIDE. PATIENT WITH FAMILY EATING DINNER WITH SON AT BEDSIDE. PATIENT, A/O X 3. PATIENT HAS NO ACUTE S/S OF DISTRESS. PATIENT DENIES ANY C/O PAIN OR DISCOMFORT. PATIENT HAS RAC 20G NO S/S OF INFILTRATION/INFECTION. PT DENIES CHEST PAIN SOB/. RN WILL CONTINUE TO MONITOR THROUGHOUT SHIFT.
[2019-02-04 20:00] VITALS: BP 139/47
[2019-02-04] MEDS: SIMVASTATIN 20 MG TABLET PO SCH (22:21)
--- NOTE | 2019-02-04 22:30 | NUR ---
MS RN NOTE PATIENT HAD HEAVY WET DIAPER. PATIENT BATHED AND CHANGED.
[2019-02-05 04:00] VITALS: BP 139/52
[2019-02-05] MEDS: AZITHROMYCIN 500 MG in IV D5W 250 ML IV SCH (06:00)
[2019-02-05 06:58] LABS: BASOPHILS % (AUTO) 0.5 % (0.0-2.0); EOSINOPHILS % (AUTO) 1.3 % (0.0-6.0); HEMATOCRIT 35 % (33-45); HEMOGLOBIN 11.7 g/dL (11.5-14.8); LYMPHOCYTES % (AUTO) 32.4 % (20.0-44.0); MEAN CORPUSCULAR HGB CONC 34 g/dl (31.0-36.0); MEAN CORPUSCULAR VOLUME 92 fL (82-100); MONOCYTES # (AUTO) 0.9 /CMM (0.1-1.30); MONOCYTES % (AUTO) 14.7 % (2.0-12.0); NEUTROPHILS # (AUTO) 3.2 /CMM (1.8-8.9); NEUTROPHILS % (AUTO) 51.1 % (43.0-81.0); PLATELET COUNT (AUTO) 163 /CMM (150-450); WHITE BLOOD COUNT (AUTO) 6.2 K/uL (4.3-11.0)
[2019-02-05 07:19] LABS: CALCIUM, SERUM 8.5 mg/dL (8.5-10.1); CARBON DIOXIDE 26 mmol/L (21-32); CHLORIDE 105 mmol/L (98-107); CREATININE 0.9 mg/dL (0.6-1.3); GLUCOSE 127 mg/dL (74-106); MAGNESIUM 1.9 mg/dL (1.8-2.4); PHOSPHORUS 2.8 mg/dL (2.5-4.9); POTASSIUM 3.2 mmol/L (3.5-5.1); SODIUM SERUM 140 mmol/L (136-145); UREA NITROGEN, BLOOD 18 mg/dL (7-18)
[2019-02-05 08:00] VITALS: BP 119/58
[2019-02-05] MEDS ORDERED: POTASSIUM CHLORIDE 20 MEQ TAB.PRT.SR PO ONE (08:30)
--- NOTE | 2019-02-05 08:44 | NUR ---
WOUND CARE CONSULT: PT PRESENTS WITH HYPERKERATOTIC SCAR TO SACRUM, PRESENT ON ADMISSION. PT IS INCONTINENT. RECOMMENDATIONS MADE FOR SKIN PROTECTION. DISCUSSED WITH NURSING STAFF. [facility]. WILL SEE PRN. GUERRIER IN AGREEMENT WITH PLAN OF CARE. CURRENT SLADE SCORE IS 18. Addendum: 02/05/19 at 0845 by FABIAN BEAR WNDNU Amended: Links added.
--- NOTE | 2019-02-05 09:02 | NUR ---
RN OPENING NOTES PT RESTING IN BED. NO COMPLAINTS OF PAIN, SOB OR DISTRESS DURING SHIFT. PT HAS RIGHT AC #20 RUNNING NS @75ML/HR, PT TOLERATING WELL. SAFETY PRECAUTIONS IN PLACE, BED IN LOWEST LOCKED POSITION, X2 SIDE RAILS UP AND CALL LIGHT WITHIN REACH. WILL CONTINUE TO MONITOR.
[2019-02-05] MEDS: BENAZEPRIL HCL 20 MG TABLET PO SCH (09:23)
[2019-02-05] MEDS: Fluoxetine 10 mg capsule PO SCH (09:23)
[2019-02-05] MEDS: ASPIRIN 81 MG TAB.CHEW PO SCH (09:23)
[2019-02-05] MEDS: IV NS 0.9% 1,000 ML IV PRN (15:25)
[2019-02-05 16:00] VITALS: BP 130/53
--- NOTE | 2019-02-05 19:30 | NUR ---
RN NOTES: RECEIVED AWAKE ON BED, LYING COMFORTABLY DURING ENDORSEMENT,ON ROOM AIR, NO SOB OR SIGN OF RESPIRATORY DISTRESS NOTED.IV SITE PATENT ON RAC#20,WITH IVF ONGOING OF NS AT 75 ML/HR AT 950CC LEVEL, A/OX3,ORIENTED TO UNIT AND STAFF, FALL, SAFETY AND ASPIRATION PRECAUTION OBSERVED, BED LOW AND LOCKED, KEPT ON CLOSE VISUAL CHECKED,CALL LIGHT WITHIN EASY REACH.
--- NOTE | 2019-02-05 19:36 | NUR ---
RN CLOSING NOTES PT RESTING IN BED. A/O X 4, NO COMPLAINTS OF PAIN, SOB OR DISTRESS DURING SHIFT. PT HAS RIGHT AC #20 RUNNING NS @75ML/HR, PT TOLERATING WELL. SAFETY PRECAUTIONS IN PLACE, BED IN LOWEST LOCKED POSITION, X2 SIDE RAILS UP AND CALL LIGHT WITHIN REACH. WILL ENDORSE TO PROGRESSIVE CARE MANAGER NURSE FOR CONTINUITY OF CARE.
[2019-02-05 20:00] VITALS: BP_SYST 110; BP_SYST 134; BP_DIAS 52; BP_DIAS 59
[2019-02-05] MEDS: SIMVASTATIN 20 MG TABLET PO SCH (21:25)
--- NOTE | 2019-02-05 22:13 | NUR ---
RN NOTES: SLEEPING COMFORTABLY, AWAKE IN BETWEEN, DUE MEDICATION GIVEN, COOPERATIVE, KEPT COMFORTABLE IN BED.
[2019-02-06] MEDS: AZITHROMYCIN 500 MG in IV D5W 250 ML IV SCH (06:31)
--- NOTE | 2019-02-06 06:54 | NUR ---
RN NOTES: ASLEEP IN THE NIGHT, CALLS AND NEEDS ATTENDED,MORNING CARE DONE, NO PAIN OR DISCOMFORT, STILL WITH ON AND OFF COUGH, NO SOB NOTED, IV/ATB GIVEN,FALL,SAFETY AND ASPIRATION PRECAUTION OBSERVED, BED LOW AND LOCKED, CALL LIGHT WITHIN EASY REACH, ENDORSED FOR CONTINUITY OF CARE.
[2019-02-06 07:16] LABS: CALCIUM, SERUM 8.2 mg/dL (8.5-10.1); CARBON DIOXIDE 26 mmol/L (21-32); CHLORIDE 107 mmol/L (98-107); CREATININE 0.8 mg/dL (0.6-1.3); GLUCOSE 92 mg/dL (74-106); POTASSIUM 3.9 mmol/L (3.5-5.1); SODIUM SERUM 141 mmol/L (136-145); UREA NITROGEN, BLOOD 15 mg/dL (7-18)
[2019-02-06 07:19] LABS: BASOPHILS % (AUTO) 0.6 % (0.0-2.0); EOSINOPHILS % (AUTO) 1.7 % (0.0-6.0); HEMATOCRIT 33 % (33-45); HEMOGLOBIN 11.2 g/dL (11.5-14.8); LYMPHOCYTES % (AUTO) 29.7 % (20.0-44.0); MEAN CORPUSCULAR HGB CONC 34 g/dl (31.0-36.0); MEAN CORPUSCULAR VOLUME 92 fL (82-100); MONOCYTES # (AUTO) 0.8 /CMM (0.1-1.30); MONOCYTES % (AUTO) 12.1 % (2.0-12.0); NEUTROPHILS # (AUTO) 3.8 /CMM (1.8-8.9); NEUTROPHILS % (AUTO) 55.9 % (43.0-81.0); PLATELET COUNT (AUTO) 149 /CMM (150-450); RED BLOOD CELL COUNT(AUTO) 3.58 MIL/uL (4.0-5.2); WHITE BLOOD COUNT (AUTO) 6.7 K/uL (4.3-11.0)
--- NOTE | 2019-02-06 07:20 | NUR ---
RN OPENING NOTE RECEIVED PATIENT IN BED AWAKE AND ALERT. VERY PLEASANT LADY. ON ROOM AIR, NO COMPLAINS OF PAIN OR SOB. HAS A RIGHT AC #20 WITH NS RUNNING AT 75 ML/HR. ON FALL PRECAUTIONS. BED LOCKED AND ON LOWEST POSITION. CALL LIGHT WITHIN REACH. WILL CONTINUE TO MONITOR THROUGH OUT THE DAY,
[2019-02-06 08:00] VITALS: BP 155/57
[2019-02-06] MEDS: Fluoxetine 10 mg capsule PO SCH (08:35)
[2019-02-06] MEDS: ASPIRIN 81 MG TAB.CHEW PO SCH (08:35)
[2019-02-06] MEDS: BENAZEPRIL HCL 20 MG TABLET PO SCH (08:35)
[2019-02-06] MEDS: IV NS 0.9% 1,000 ML IV PRN (08:38)
--- NOTE | 2019-02-06 12:16 | NUR ---
RN NOTE SON CALLED AND ASKED TO TALK TO THE PATIENT. PATIENT AWAKE AND ANSWERED THE PHONE CALL. [facility] CALLED AND STATING THEY ARE THE HOME HEALTH CARE FOR PT FOR THE PATIENT. LOCATION AT [place]. PHONE # [phone] AND FAX # [phone]. TALKED TO VIOLETTE, SHE STATES SHE IS THE NATIONAL CORPORATE ADMINISTRATIVE ASSISTANT.
[2019-02-06] MEDS ORDERED: AZIT250T PO (13:44)
--- NOTE | 2019-02-06 15:47 | NUR ---
RN NOTE SPOKE WITH THE SON; YOSI, WILL TELEPHONE ORDER SUPERVISOR HIS MOM AND WILL RIDE THE CAB/UBER.
[2019-02-06 16:00] VITALS: BP 144/56
--- NOTE | 2019-02-06 16:00 | NUR ---
RN NOTE REMINDED PATIENT THROUGH OUT THE DAY TO TURN AND REPOSITION HERSELF TO PREVENT PRESSURE ULCERS.
--- NOTE | 2019-02-06 17:30 | NUR ---
RN NOTE PATIENT STATES THAT SHE IS VERY WEAK TO BE ABLE TO GO HOME VIA A CAB. SOA ARCHITECT ARRANGED A TRANSPORTATION AND ASSISTANT BASKETBALL COACH WILL BE AT 1845.
--- NOTE | 2019-02-06 18:42 | NUR ---
RN CLOSING NOTE PATIENT IS JUST WAITING FOR THE TRANSPORTATION. SON IS WITH THE PATIENT ON BEDSIDE. ASKED KITCHEN FOR GUEST TRAY FOR THE SON. WILL ENDORSE TO NOC SHIFT. BUILDING PRINCIPAL AT 1930
--- NOTE | 2019-02-06 21:00 | NUR ---
ARCHERY INSTRUCTOR NOTE: PT WAS DISCHARGED HOME IN STABLE CONDITION. SON SEBASTIÁN AT BEDSIDE. NO APPARENT DISTRESS NOTED. NO COMPLAINTS OF PAIN OR DISCOMFORT. NO SOB NOTED. VITAL SIGNS STABLE. EXIT CARE DONE. IV ON RIGHT ANTECUBITAL #20 REMOVED. DISCHARGE INSTRUCTIONS AND PRESCRIPTIONS GIVEN.
[2019-02-07] MEDS ORDERED: AZITHROMYCIN 250 MG TABLET PO SCH (08:00)
== END 2019-02-06 21:59 | disposition home or self-care (01) | DRG 640 ==
LOC: ER 18:48 → MEDSG1 22:30
PROVIDERS: ADMIT Nurse Practitioner Acute Care; ATTEND Hospitalist
DX: E86.0 Dehydration (principal); J15.9 Unspecified bacterial pneumonia; J06.9 Acute upper respiratory infection, unspecified; E87.1 Hypo-osmolality and hyponatremia; I50.9 Heart failure, unspecified; E78.5 Hyperlipidemia, unspecified; I11.0 Hypertensive heart disease with heart failure; Z86.73 Personal history of transient ischemic attack (TIA), and cerebral infarction without residual deficits; Z88.4 Allergy status to anesthetic agent; Z88.0 Allergy status to penicillin; Z79.899 Other long term (current) drug therapy; E87.6 Hypokalemia; R79.89 Other specified abnormal findings of blood chemistry; F32.9 Major depressive disorder, single episode, unspecified
CPT/HCPCS: 36415; 70450-TC; 71045-TC; 80048-TC; 80061-TC; 80076-TC; 81000-TC; 83735-TC; 84100-TC; 84484-TC; 85025-TC; 85730-TC; 87081-TC; 87400; 97110-TC; 97116-TC; 97530-TC; G0378; J0456; J7030; J7060

== ENCOUNTER 2019-11-15 18:14 | Emergency (ER) | payer MEDICARE ==
[~2019-11-15] VITALS: Ht 152.4 cm; Wt 66.2 kg
[~2019-11-15 18:14] MED LIST changes: +AZIT250T PO; -FLUO-119 PO; +FLUO10CA27 PO; +SIMV-46 PO; -SIMV20TA6 PO
[2019-11-15 18:54] LABS: CALCIUM, SERUM 9.2 mg/dL (8.5-10.1); CARBON DIOXIDE 21 mmol/L (21-32); CHLORIDE 100 mmol/L (98-107); CREATININE 1.4 mg/dL (0.6-1.3); GLUCOSE 115 mg/dL (74-106); POTASSIUM 4.4 mmol/L (3.5-5.1); SODIUM SERUM 135 mmol/L (136-145); UREA NITROGEN, BLOOD 28 mg/dL (7-18)
[2019-11-15 18:57] LABS: BASOPHILS # (AUTO) 0.1 /CMM (0.0-0.2); BASOPHILS % (AUTO) 0.8 % (0.0-2.0); EOSINOPHILS % (AUTO) 1.4 % (0.0-6.0); HEMATOCRIT 41 % (33-45); HEMOGLOBIN 13.3 g/dL (11.5-14.8); LYMPHOCYTES # (AUTO) 1.2 /CMM (0.8-4.8); LYMPHOCYTES % (AUTO) 14.5 % (20.0-44.0); MEAN CORPUSCULAR HGB CONC 33 g/dl (31.0-36.0); MEAN CORPUSCULAR VOLUME 93 fL (82-100); MONOCYTES # (AUTO) 0.9 /CMM (0.1-1.30); MONOCYTES % (AUTO) 11.8 % (2.0-12.0); NEUTROPHILS # (AUTO) 5.7 /CMM (1.8-8.9); NEUTROPHILS % (AUTO) 71.5 % (43.0-81.0); PLATELET COUNT (AUTO) 225 /CMM (150-450); RED BLOOD CELL COUNT(AUTO) 4.39 MIL/uL (4.0-5.2)
[2019-11-15 18:59] LABS: ALANINE AMINOTRANSFERASE 20 U/L (12-78); ALBUMIN 3.5 g/dL (3.4-5.0); ALKALINE PHOSPHATASE 83 U/L (46-116); ASPARTATE AMINOTRANSFERASE 19 U/L (15-37); BILIRUBIN,DIRECT 0.1 mg/dL (0.0-0.2); BILIRUBIN,TOTAL 0.4 mg/dL (0.2-1.0); LIPASE 92 U/L (73-393); TOTAL PROTEIN, SERUM 7.9 g/dL (6.4-8.2)
[2019-11-15] MEDS ORDERED: IV NS 0.9% 500 ML BAG IV ONE (19:00)
--- NOTE | 2019-11-15 19:00 | NUR ---
patient BIB family came in due to intermittent abd pain, on room air, breathing evenly and unlabored. connected to the monitor and pulse ox. kept comfortable, will continue to monitor accordingly.
--- NOTE | 2019-11-15 19:05 | NUR ---
Report given to Fiona REYES for gavin.
--- NOTE | 2019-11-15 19:12 | NUR ---
PT RETURNED FROM CT.
--- NOTE | 2019-11-15 19:15 | NUR ---
URINE SAMPLE SENT TO LAB. IN AND OUT CATH DONE.
[2019-11-15 19:28] LABS: BILIRUBIN,URINE SMALL (NEGATIVE); BLOOD, URINE Negative Ery/uL (NEGATIVE); COLOR,URINE Yellow (YELLOW); KETONES,URINE 40 (NEGATIVE); LEUKOCYTE ESTERASE ,URINE Negative (NEGATIVE); NITRITE, URINE Negative (NEGATIVE); PROTEIN,URINE Negative (NEGATIVE); UGLUCOSE Negative (NEGATIVE); UROBILINOGEN,URINE 0.2 EU/dL (0.2)
[2019-11-15 19:34] LABS: APPEARANCE,URINE CLEAR (CLEAR)
--- NOTE | 2019-11-15 20:29 | NUR ---
IV removed. Catheter intact and site benign. Pressure and 4x4 applied to site. No bleeding noted. Patient discharged to home in stable condition. Written and verbal after care instructions given. Patient verbalizes understanding of instruction and Rx. VSS.
[2019-11-15 20:30] VITALS: BP 135/98
== END 2019-11-15 20:31 | disposition home or self-care (01) ==
LOC: ER 18:19
DX: K59.00 Constipation, unspecified (principal); I10 Essential (primary) hypertension; Z88.0 Allergy status to penicillin; Z88.6 Allergy status to analgesic agent; Z86.73 Personal history of transient ischemic attack (TIA), and cerebral infarction without residual deficits; Z79.899 Other long term (current) drug therapy
CPT/HCPCS: 36415; 71045; 74176; 80048; 80076; 81001; 83690; 85025; 87086; 99284; J7040; 81000-TC

== ENCOUNTER 2019-11-17 18:40 | Inpatient (IN) | payer MEDICARE ==
[~2019-11-17] VITALS: Ht 152.4 cm; Wt 62.6 kg
--- NOTE | 2019-11-17 18:46 | NUR ---
BIB RA FROM HOME,WORSENING WEAKNESS X 4 DAYS,SON IS UNABLE TO TAKE CARE OF HER,COVERED IN FECES UPON EMS ARRIVAL, pt to bed 5, pt on montior, pt awake, alert, -sob, nad noted, vss, pending md sorensen
[2019-11-17 19:19] LABS: BASOPHILS # (AUTO) 0.1 /CMM (0.0-0.2); BASOPHILS % (AUTO) 0.6 % (0.0-2.0); EOSINOPHILS % (AUTO) 2.5 % (0.0-6.0); HEMATOCRIT 43 % (33-45); HEMOGLOBIN 14.2 g/dL (11.5-14.8); LYMPHOCYTES # (AUTO) 1.9 /CMM (0.8-4.8); LYMPHOCYTES % (AUTO) 21.6 % (20.0-44.0); MEAN CORPUSCULAR HGB CONC 33 g/dl (31.0-36.0); MEAN CORPUSCULAR VOLUME 93 fL (82-100); MONOCYTES # (AUTO) 0.9 /CMM (0.1-1.30); MONOCYTES % (AUTO) 10.4 % (2.0-12.0); NEUTROPHILS # (AUTO) 5.6 /CMM (1.8-8.9); NEUTROPHILS % (AUTO) 64.9 % (43.0-81.0); PLATELET COUNT (AUTO) 248 /CMM (150-450); WHITE BLOOD COUNT (AUTO) 8.7 K/uL (4.3-11.0)
[2019-11-17 19:23] LABS: APPEARANCE,URINE Clear (CLEAR); BILIRUBIN,URINE Negative (NEGATIVE); BLOOD, URINE Negative Ery/uL (NEGATIVE); COLOR,URINE Yellow (YELLOW); KETONES,URINE 40 (NEGATIVE); LEUKOCYTE ESTERASE ,URINE Negative (NEGATIVE); NITRITE, URINE Negative (NEGATIVE); PH,URINE 5.5 (5.0-8.0); PROTEIN,URINE Negative (NEGATIVE); UGLUCOSE Negative (NEGATIVE); UROBILINOGEN,URINE 0.2 EU/dL (0.2)
[2019-11-17 19:35] LABS: CALCIUM, SERUM 9.4 mg/dL (8.5-10.1); CARBON DIOXIDE 23 mmol/L (21-32); CHLORIDE 95 mmol/L (98-107); CREATININE 1.3 mg/dL (0.6-1.3); GLUCOSE 167 mg/dL (74-106); POTASSIUM 4.1 mmol/L (3.5-5.1); SODIUM SERUM 131 mmol/L (136-145); UREA NITROGEN, BLOOD 15 mg/dL (7-18)
[2019-11-17 19:49] LABS: ALANINE AMINOTRANSFERASE 28 U/L (12-78); ALBUMIN 3.6 g/dL (3.4-5.0); ALKALINE PHOSPHATASE 93 U/L (46-116); ASPARTATE AMINOTRANSFERASE 33 U/L (15-37); BILIRUBIN,DIRECT 0.1 mg/dL (0.0-0.2); BILIRUBIN,TOTAL 0.5 mg/dL (0.2-1.0); TOTAL PROTEIN, SERUM 8.2 g/dL (6.4-8.2)
[2019-11-17] MEDS ORDERED: IV NS 0.9% 1,000 ML IV ONE (20:30)
[2019-11-17] MEDS ORDERED: LEVOFLOXACIN 750 MG /D5W 150ML PIGGYBACK IV ONE (20:30)
[2019-11-17] MEDS ORDERED: LEVOFLOXACIN 750 MG /D5W 150ML 150 ML IV ONE (20:34)
[2019-11-17 22:20] VITALS: BP 137/51
--- NOTE | 2019-11-17 22:20 | NUR ---
ARMATURE WINDER AUTOMOTIVE NOTE PT ARRIVED TO FLOOR VIA ELSY ACCOMPANIED BY SON AND ER STAFF. PT IN STABLE CONDITION A/OX3, NO SIGNS OF SOB OR DISTRESS, NO COMPLAINTS OF PAIN OR N/V. IV IN R AC#[address] S/L. ALL CURRENT NEEDS ATTENDED TO. BED LOW, LOCKED, UPPER RAILS UP, AND CALL LIGHT WITHIN REACH. WILL CONT. TO MONITOR. ALL BELONGINGS TAKEN BY SON, SKIN ASSESSED AND PHOTOS TAKEN. MELISA BONILLA AWARE OF PT ARRIVAL TO FLOOR.
--- NOTE | 2019-11-17 22:20 | NUR ---
REPORT GIVEN TO SARAH REYES FOR YANCY; PT TRANSPORTED TO 3RD FLOOR
[2019-11-17] MEDS ORDERED: MAGNESIUM HYDROXIDE 30 ML UDC PO PRN (23:00)
[2019-11-17] MEDS ORDERED: ZOLPIDEM TARTRATE 5 MG TABLET PO PRN (23:00)
[2019-11-17] MEDS ORDERED: Z GUARD REMEDY 2 OZ OINT TP PRN (23:00)
[2019-11-17] MEDS ORDERED: ACETAMINOPHEN 325 MG TABLET PO PRN (23:00)
[2019-11-17] MEDS ORDERED: ONDANSETRON HCL/PF 4 MG/2 ML VIAL IVP PRN (23:00)
[2019-11-17] MEDS: IV NS 0.9% 1,000 ML IV PRN (23:26)
[2019-11-17] MEDS: ENOXAPARIN SODIUM 30 MG/0.3 ML DISP.SYRIN SQ SCH ×2 (23:30→23:44)
--- NOTE | 2019-11-17 23:48 | NUR ---
MS RN NOTE SCHEDULED LOVENOX NOT ADMINISTERED, PT REFUSED MED. RISK AND BENEFITS MADE AWARE, WILL CONT. TO MONITOR.
[2019-11-18] VITALS: BP_SYST 100; BP_SYST 94; BP_DIAS 34; BP_DIAS 53
[2019-11-18 04:00] VITALS: BP 121/62
--- NOTE | 2019-11-18 07:15 | NUR ---
MS RN NOTE PT REMAINS IN STABLE CONDITION A/OX3, NO SIGNS OF SOB OR DISTRESS, NO COMPLAINTS OF PAIN OR N/V. IV IN R AC#[address] WITH IVF INFUSING. ALL CURRENT NEEDS ATTENDED TO. BED LOW, LOCKED, UPPER RAILS UP, AND CALL LIGHT WITHIN REACH. WILL CONT. TO MONITOR AND ENDORSE TO DAYSHIFT.
[2019-11-18 07:55] LABS: BASOPHILS % (AUTO) 0.4 % (0.0-2.0); EOSINOPHILS % (AUTO) 3.4 % (0.0-6.0); HEMATOCRIT 38 % (33-45); HEMOGLOBIN 12.5 g/dL (11.5-14.8); LYMPHOCYTES % (AUTO) 17.3 % (20.0-44.0); MEAN CORPUSCULAR HGB CONC 33 g/dl (31.0-36.0); MEAN CORPUSCULAR VOLUME 93 fL (82-100); MONOCYTES # (AUTO) 0.7 /CMM (0.1-1.30); MONOCYTES % (AUTO) 11.2 % (2.0-12.0); NEUTROPHILS % (AUTO) 67.7 % (43.0-81.0); PLATELET COUNT (AUTO) 214 /CMM (150-450); WHITE BLOOD COUNT (AUTO) 5.9 K/uL (4.3-11.0)
[2019-11-18 08:05] LABS: ALBUMIN 2.9 g/dL (3.4-5.0); BILIRUBIN,TOTAL 0.3 mg/dL (0.2-1.0); CREATININE 1.1 mg/dL (0.6-1.3); MAGNESIUM 1.8 mg/dL (1.8-2.4); PHOSPHORUS 3.2 mg/dL (2.5-4.9); POTASSIUM 3.8 mmol/L (3.5-5.1)
--- NOTE | 2019-11-18 08:05 | NUR ---
ms rn received on bed, awake,alert,oriented x2-3,not in any form of distress, respirations even and unlabored,no sob noted,lungs are diminished,abdomen soft,positive bowel sounds,denies pain at this time,all needs attended.
[2019-11-18 08:09] LABS: THYROID STIMULATING HORMONE 2.27 uIU/mL (0.358-3.74)
[2019-11-18 08:15] VITALS: BP 108/53
[2019-11-18] MEDS: BENAZEPRIL HCL 20 MG TABLET PO SCH (09:00)
--- NOTE | 2019-11-18 09:00 | NUR ---
3 ms rn breakfast served,due meds given,tolerated well. + +
[2019-11-18] MEDS: Fluoxetine 10 mg capsule PO SCH (10:13)
--- NOTE | 2019-11-18 13:39 | NUR ---
ms rns on at bedside, no distress, noted
--- NOTE | 2019-11-18 13:42 | NUR ---
ms rn on bed,no distress noted.
[2019-11-18 15:52] VITALS: BP 99/56
--- NOTE | 2019-11-18 17:33 | NUR ---
ms rn on bed,all needs attended.
[2019-11-18] MEDS: IV NS 0.9% 1,000 ML IV PRN (18:11)
--- NOTE | 2019-11-18 19:30 | NUR ---
MS RN NOTES RECEIVED ON BED SLEEPING,AROUSABLE TO VERBAL STIMULI,BREATHING REGULAR,NOT IN ANY FORM OF DISTRESS.IVF NS AT 75ML/HR RATE IN PROGRESS ON LEFT AC VIA IV PUMP.FALL PRECAUTION OBSERVED,BED ON LOWEST POSITION AND LOCKED.BED ALARM TRIGGERED.CALL LIGHT IN REACH,NEEDS ANTICIPATED.
[2019-11-18 20:00] VITALS: BP 118/51
[2019-11-18] MEDS: SIMVASTATIN 20 MG TABLET PO SCH (22:09)
--- NOTE | 2019-11-19 06:29 | NUR ---
MS RN NOTES SLEPT WELL AT NIGHT,BREATHING EASY,NO SOB,NO COMPLAINTS OF PAIN.MED COMPLIANT,NEGATIVE FOR ASPIRATION.IVF INFUSING WELL ON LEFT AC SALINE LOCK VIA IV PUMP.IN NO ACUTE DISTRESS.WILL ENDORSE TO DAY NURSE FOR YANCY.
[2019-11-19 07:10] LABS: BASOPHILS % (AUTO) 0.8 % (0.0-2.0); EOSINOPHILS % (AUTO) 4.7 % (0.0-6.0); HEMATOCRIT 33 % (33-45); HEMOGLOBIN 11.1 g/dL (11.5-14.8); LYMPHOCYTES # (AUTO) 1.7 /CMM (0.8-4.8); LYMPHOCYTES % (AUTO) 26.7 % (20.0-44.0); MEAN CORPUSCULAR HGB CONC 33 g/dl (31.0-36.0); MEAN CORPUSCULAR VOLUME 92 fL (82-100); MONOCYTES # (AUTO) 0.8 /CMM (0.1-1.30); MONOCYTES % (AUTO) 11.9 % (2.0-12.0); NEUTROPHILS # (AUTO) 3.5 /CMM (1.8-8.9); NEUTROPHILS % (AUTO) 55.9 % (43.0-81.0); PLATELET COUNT (AUTO) 198 /CMM (150-450); WHITE BLOOD COUNT (AUTO) 6.3 K/uL (4.3-11.0)
[2019-11-19 07:21] LABS: CALCIUM, SERUM 8.6 mg/dL (8.5-10.1); CREATININE 1.1 mg/dL (0.6-1.3); MAGNESIUM 1.9 mg/dL (1.8-2.4); PHOSPHORUS 3.1 mg/dL (2.5-4.9); POTASSIUM 3.7 mmol/L (3.5-5.1)
[2019-11-19 08:00] VITALS: BP 100/56
--- NOTE | 2019-11-19 08:00 | NUR ---
m/s medical transcription: initial assessment received pt in bed awake, a/ox2-3. no c/o pain or any discomfort. no acute distress noted. instructed to call for assistance.
[2019-11-19] MEDS: BENAZEPRIL HCL 20 MG TABLET PO SCH (08:17)
[2019-11-19] MEDS: Fluoxetine 10 mg capsule PO SCH (08:39)
--- NOTE | 2019-11-19 12:00 | NUR ---
m/s medical laboratory technologist: md visit seen and examined by dr. shukla at this time. per p.t. recommendation, pt needs snf. aware.
--- NOTE | 2019-11-19 14:00 | NUR ---
m/s commercial producer: notes son visiting at this time and updated plan of care. son in contact with margy (case management) re: d'c planning to snf.
[2019-11-19 16:00] VITALS: BP 111/56
--- NOTE | 2019-11-19 16:00 | NUR ---
m/s chlorination operator: notes resting comfortable in bed. no distress noted. son left and will check snf tomorrow morning as stated.
--- NOTE | 2019-11-19 18:07 | NUR ---
m/s hotel services sales representative: notes resting comfortable in bed. no distress noted. needs attended. will continue to monitor.
--- NOTE | 2019-11-19 19:00 | NUR ---
m/s professional development director: notes bedside report given to linette (rn) for continuity of care.
--- NOTE | 2019-11-19 19:11 | NUR ---
CHANGED OF SHIFT REPORT Patient in bed, sleeping, arouses easily. A/O x3, appears weak. ANA redness and warmth to touch, denies pain. IVF infusing to left AC. Fall/skin precaution maintained. D/C planning, awaiting placement per report.
[2019-11-19 20:20] VITALS: BP 113/47
[2019-11-19 20:38] VITALS: BP 113/47
[2019-11-19] MEDS: SIMVASTATIN 20 MG TABLET PO SCH (21:34)
[2019-11-19] MEDS: ENOXAPARIN SODIUM 30 MG/0.3 ML DISP.SYRIN SQ SCH ×2 (23:12)
[2019-11-20] MEDS: IV NS 0.9% 1,000 ML IV PRN (00:48)
--- NOTE | 2019-11-20 06:24 | NUR ---
END OF SHIFT REPORT Patient in bed, awake, A/O x3 Forgetful. Stable Oxygen saturation on RA. IVF infusing. Reposition x2 assist, denies pain. Wound consult to follow. Will endorse to Oncoming RN.
--- NOTE | 2019-11-20 07:50 | NUR ---
MS/RN OPENING NOTE Patient received resting in bed, A/o x2-3, showing no signs of acute distress or SOB, breathing is even and unlabored saturating well on RA. IV line is clean and intact running NS @ 75ml/hr. Patient has no complaints of pain at this time. Bed is in lowest position, side rails x3 in upright position. Safety, fall and aspiration precautions enforced. Will continue with plan of care.
[2019-11-20 08:00] VITALS: BP 126/51
[2019-11-20] MEDS: BENAZEPRIL HCL 20 MG TABLET PO SCH (09:04)
[2019-11-20] MEDS: Fluoxetine 10 mg capsule PO SCH (09:06)
[2019-11-20] MEDS ORDERED: ASPIRIN 81 MG TAB.CHEW PO SCH (09:30)
[2019-11-20] MEDS ORDERED: ASPI-1169 PO (15:03)
[2019-11-20] MEDS ORDERED: ZOLP5TAB2 PO (15:03)
[2019-11-20 16:00] VITALS: BP 102/44
--- NOTE | 2019-11-20 17:15 | NUR ---
MS/RESEARCH STAFF MEMBER NOTE Patient is medically stable for discharge, A/O x2-3, is in no acute distress, no SOB noted. Vital signs WNL. IV removed, ID band removed. Patient has no belongings with them. All patient needs met, all due meds given. Patient kept clean and comfortable throughout shift. Skin assessed, photos taken and placed in chart. DC instructions provided and patient complained that she is too tired to sign DC papers. Signed DC papers with witness RN. SonPedrito is aware that patient is discharging to [facility]. Report given to María Elena REYES at [facility]. Patient left on [facility] with EMS.
== END 2019-11-20 17:15 | DRG 640 ==
LOC: ER 18:42 → TELE 22:07 → MED 11-18 08:29
PROVIDERS: ADMIT Nurse Practitioner Acute Care
DX: E86.0 Dehydration (principal); G93.41 Metabolic encephalopathy; N17.9 Acute kidney failure, unspecified; E87.2 Acidosis; E87.1 Hypo-osmolality and hyponatremia; E78.5 Hyperlipidemia, unspecified; F32.9 Major depressive disorder, single episode, unspecified; I25.10 Atherosclerotic heart disease of native coronary artery without angina pectoris; Z86.73 Personal history of transient ischemic attack (TIA), and cerebral infarction without residual deficits; K59.09 Other constipation; I11.0 Hypertensive heart disease with heart failure; I50.9 Heart failure, unspecified; Z88.0 Allergy status to penicillin
CPT/HCPCS: 36415; 71045-TC; 80048-TC; 80053-TC; 80061-TC; 80076-TC; 81000-TC; 83540-TC; 83605-TC; 83735-TC; 84100-TC; 84443-TC; 84484-TC; 85025-TC; 85730-TC; 87040-TC; 87081-TC; 87086-TC; 93307-TC; 97116-TC; 97530-TC; G0378; J1650; J1956; J7030